=== PATIENT | male | born 1960 | race Caucasian/White ===

== ENCOUNTER 2017-07-17 00:49 | Emergency (ER) | payer BC, MEDICAID ==
[~2017-07-17] VITALS: Ht 182.9 cm; Wt 75.0 kg
[~2017-07-17 00:49] MED LIST: ASPI-1073 PO; FLUO10CA25 PO; HALDOL; LISI-186 PO; LORA-250 PO; RAZADYNE; SEROQUEL PO; SERT100T PO; SIMV20TA6 PO; SIMV40TA2 PO; SULF500T PO; TRAZ150T78 PO
[2017-07-17] MEDS ORDERED: SODIUM CHLORIDE 0.9% 1,000 ML IV ONE (01:46)
[2017-07-17] MEDS ORDERED: PANTOPRAZOLE SODIUM 40 MG/VIAL IV STA (01:46)
[2017-07-17 02:11] LABS: BASOPHILS % 0.3 % (0.0-2.0); EOSINOPHILS % 1.6 % (0.0-5.0); HEMATOCRIT. 39.6 % (42.0-52.0); HEMOGLOBIN. 13.6 g/dL (14.0-18.0); MEAN CORPUSCULAR HEMOGLOBIN 31.6 pg (28.0-32.0); MEAN CORPUSCULAR VOLUME 91.7 fL (80.0-94.0); MONOCYTES % 8.5 % (2.0-8.0); NEUTROPHILS % 46.6 % (40.0-76.0); PLATELET 167 x1000/uL (130-400); RED BLOOD CELL COUNT 4.32 mill/uL (4.7-6.1); RED CELL DISTRIBUTION WIDTH 14.2 % (11.6-14.6)
[2017-07-17 02:14] LABS: CHLORIDE 104 mEq/L (98-107)
[2017-07-17 02:17] LABS: INR 1.1
[2017-07-17 02:23] LABS: CARBON DIOXIDE 32 mEq/L (21-32)
[2017-07-17] MEDS ORDERED: MORPHINE SULFATE 2 MG/ML CPJ (NOT FOR IM USE) IV ONE (03:15)
[2017-07-17] MEDS ORDERED: MORPHINE SULFATE 4 MG/ML CPJ (NOT FOR IM USE) IV NR (03:45)
[2017-07-17] MEDS ORDERED: METRONIDAZOLE 500 MG PREMIX 100 ML IV ONE (05:45)
[2017-07-17] MEDS ORDERED: IOHEXOL-300 100 ML BOTTLE ONE (06:25)
[2017-07-17 07:08] VITALS: BP 120/69
== END 2017-07-17 07:10 | disposition home or self-care (01) ==
LOC: ER 00:49 → CANBEDREQ 17:23
DX: K52.89 Other specified noninfective gastroenteritis and colitis (principal); F17.210 Nicotine dependence, cigarettes, uncomplicated; J44.9 Chronic obstructive pulmonary disease, unspecified; K50.90 Crohn's disease, unspecified, without complications; Z95.828 Presence of other vascular implants and grafts; Z79.02 Long term (current) use of antithrombotics/antiplatelets; Z79.82 Long term (current) use of aspirin; Z79.899 Other long term (current) drug therapy; Z88.5 Allergy status to narcotic agent; Z88.2 Allergy status to sulfonamides
CPT/HCPCS: 36415; 74177; 80053; 82962; 83605; 83690; 85025; 85610; 86850; 86900; 86901; 96361; 96365; 96375; 99285; C9113; J2270; J3490; Q9967; J7030